=== PATIENT | female | born 1995 | race American Indian/Alaskan Native ===

== ENCOUNTER 2017-04-23 22:40 | Emergency (ER) | payer MEDICAID ==
[2017-04-24] MEDS ORDERED: DECADRON IM ONE (00:23)
[2017-04-24] MEDS ORDERED: ROCEPHIN IM ONE (00:23)
[2017-04-24] MEDS ORDERED: XYLOCAINE 1% MPF 5 mL INFILTRATI ONE (00:23)
[2017-04-24 00:39] LABS: Bilirubin,Urine NEG (Negative); Blood,Urine NEG (Negative); Ketones,Urine NEG (Negative); Leukocyte Esterase,Urine NEG (Negative); Mucus,Urine FEW /HPF; Nitrite,Urine NEG (Negative); Protein,Urine <15 mg/dL mg/dL (Negative); Urobilinogen,Urine < 2.0 mg/dL (<2.0)
--- NOTE | 2017-04-24 01:16 | Emergency Department Report ---
ED ENT HPI - General Chief complaint: Sore Throat Stated complaint: BODY ACHES/SORE THROAT/FEVER Time Seen by Provider: 04/24/17 00:13 Source: patient Mode of arrival: Ambulatory Limitations: No Limitations - History of Present Illness Initial comments: Patient comes into the ER today with complaints of throat pain for the past 3 days. Patient has been taken [id number] medications without any relief. Patient states the throat hurts when she swallows, coughs or even drinks. Patient states that she has been running a fever with chills but has not checked her temperature at home. Patient denies any nasal congestion, chest pain, shortness of breath, abdominal pain. MD complaint: sore throat -: days(s) (3) - Related Data Previous Rx's Medication Instructions Recorded Last Taken Type Amoxicillin 1,000 mg PO BID #40 capsule 04/24/17 Unknown Rx traMADol [Ultram] 50 mg PO Q4HR PRN #15 tablet 04/24/17 Unknown Rx Allergies Allergy/AdvReac Type Severity Reaction Status Date / Time No Known Allergies Allergy Unverified 04/23/17 22:48 ED Dental HPI - General Chief complaint: Sore Throat Stated complaint: BODY ACHES/SORE THROAT/FEVER Time Seen by Provider: 04/24/17 00:13 Source: patient Mode of arrival: Ambulatory Limitations: No Limitations - Related Data Previous Rx's Medication Instructions Recorded Last Taken Type Amoxicillin 1,000 mg PO BID #40 capsule 04/24/17 Unknown Rx traMADol [Ultram] 50 mg PO Q4HR PRN #15 tablet 04/24/17 Unknown Rx Allergies Allergy/AdvReac Type Severity Reaction Status Date / Time No Known Allergies Allergy Unverified 04/23/17 22:48 ED Review of Systems ROS: Stated complaint: BODY ACHES/SORE THROAT/FEVER Other details as noted in HPI Constitutional: chills, fever Eyes: denies: eye pain, eye discharge, vision change ENT: throat pain. denies: ear pain, dental pain, epistaxis, congestion Respiratory: denies: cough, shortness of breath, wheezing Cardiovascular: denies: chest pain, palpitations Endocrine: no symptoms reported Gastrointestinal: denies: abdominal pain, nausea, diarrhea Genitourinary: denies: urgency, dysuria, discharge Musculoskeletal: denies: back pain, joint swelling, arthralgia Skin: denies: rash, lesions Neurological: denies: headache, weakness, paresthesias Psychiatric: denies: anxiety, depression Hematological/Lymphatic: denies: easy bleeding, easy bruising ED Past Medical Hx - Past Medical History Previous Medical History?: No - Surgical History Past Surgical History?: No - Social History Smoking Status: Current Some Day Smoker - Medications Home Medications: Home Medications Medication Instructions Recorded Confirmed Last Taken Type Amoxicillin 1,000 mg PO BID #40 capsule 04/24/17 Unknown Rx traMADol [Ultram] 50 mg PO Q4HR PRN #15 tablet 04/24/17 Unknown Rx ED Physical Exam - General Limitations: No Limitations General appearance: alert, in no apparent distress - Head Head exam: Present: atraumatic, normocephalic - Eye Eye exam: Present: normal appearance - ENT ENT exam: Present: mucous membranes moist, TM's normal bilaterally, normal external ear exam, other (bilateral posterior pharynx erythematous with tonsillar exudates.) - Neck Neck exam: Present: normal inspection, tenderness (tonsillar tenderness), full ROM, lymphadenopathy (bilateral tonsillar) - Respiratory Respiratory exam: Present: normal lung sounds bilaterally. Absent: respiratory distress, chest wall tenderness, decreased breath sounds - Cardiovascular Cardiovascular Exam: Present: regular rate, normal rhythm, normal heart sounds. Absent: systolic murmur, diastolic murmur, rubs, gallop - GI/Abdominal GI/Abdominal exam: Present: soft, normal bowel sounds. Absent: distended, tenderness, guarding, rebound - Extremities Exam Extremities exam: Present: normal inspection - Back Exam Back exam: Present: normal inspection - Neurological Exam Neurological exam: Present: alert, oriented X3 - Psychiatric Psychiatric exam: Present: normal affect, normal mood - Skin Skin exam: Present: warm, dry, intact, normal color. Absent: rash ED Course Vital Signs 04/23/17 22:52 Temperature 99.1 F Pulse Rate 81 Respiratory 18 Rate Blood Pressure 120/96 O2 Sat by Pulse 99 Oximetry ED Medical Decision Making - Lab Data Rapid strep screen in the ER negative - Medical Decision Making Patient is nontoxic and hemodynamically stable. Despite rapid strep results, I have concern for patient having strep throat. I will start patient on medications appropriately and excuse her from work for the next couple days. Patient is in agreement with treatment plan patient is stable for discharge. Critical care attestation.: If time is entered above; I have spent that time in minutes in the direct care of this critically ill patient, excluding procedure time. ED Disposition Clinical Impression: Exudative pharyngitis Disposition: TO HOME OR SELFCARE Is pt being admited?: No Does the pt Need Aspirin: No Condition: Good Instructions: Strep Throat (ED), Fever in Adults (ED) Prescriptions: Amoxicillin 1,000 mg PO BID #40 capsule traMADol [Ultram] 50 mg PO Q4HR PRN #15 tablet PRN Reason: Pain Referrals: PRIMARY CARE,MD [Primary Care Provider] - 3-5 Days Forms: Work/School Release Form(ED) Time of Disposition: 01:16
[2017-04-24 01:42] VITALS: BP 104/61
== END 2017-04-24 01:42 | disposition home or self-care (01) ==
LOC: ED 22:40
DX: J02.9 Acute pharyngitis, unspecified (principal); F17.210 Nicotine dependence, cigarettes, uncomplicated
CPT/HCPCS: 81001; 81025; 87116; 87430; 96372; 99283; J0696; J1100

== ENCOUNTER 2020-05-27 19:14 | Emergency (ER) | payer OTHER ==
[2020-05-27 20:28] VITALS: BP 133/72
[2020-05-27] MEDS ORDERED: IBUPROFEN 600 MG TAB PO ONE (23:06)
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
== END 2020-05-28 00:45 | disposition home or self-care (01) ==
LOC: ED 19:14
DX: S16.1XXA Strain of muscle, fascia and tendon at neck level, initial encounter (principal); F12.10 Cannabis abuse, uncomplicated; Z79.899 Other long term (current) drug therapy; V49.59XA Passenger injured in collision with other motor vehicles in traffic accident, initial encounter; Y93.89 Activity, other specified; Y92.488 Other paved roadways as the place of occurrence of the external cause; Y99.8 Other external cause status
CPT/HCPCS: 72040; 99283